=== PATIENT | female | born 1995 | race Two or more races ===

== ENCOUNTER 2021-03-07 00:56 | Inpatient (IN) | payer OTHER ==
[~2021-03-07] VITALS: Ht 157.5 cm; Wt 54.9 kg
[2021-03-07] MEDS ORDERED: PRENATAL TABLE1 EAC1 PO (01:19)
[2021-03-07] MEDS ORDERED: IRON236 MG PO (01:19)
== END 2021-03-09 09:11 | disposition home or self-care (01) | DRG 833 ==
LOC: LDR 00:56
PROVIDERS: ADMIT Obstetrics & Gynecology Maternal & Fetal Medicine; ATTEND Obstetrics & Gynecology Maternal & Fetal Medicine
PROC: 4A1HXFZ Monitoring of Products of Conception, Cardiac Rhythm, External Approach (ICD-10-PCS; principal; 2021-03-07)
PROC: BY4GZZZ Ultrasonography of Third Trimester, Multiple Gestation (ICD-10-PCS; 2021-03-07)
DX: O21.8 Other vomiting complicating pregnancy (principal); O30.043 Twin pregnancy, dichorionic/diamniotic, third trimester; R19.7 Diarrhea, unspecified; Z3A.28 28 weeks gestation of pregnancy; Z20.822 Contact with and (suspected) exposure to COVID-19

== ENCOUNTER 2021-03-10 14:42 | Inpatient (IN) | payer OTHER ==
[~2021-03-10] VITALS: Ht 157.5 cm; Wt 54.9 kg
[~2021-03-10 14:42] MED LIST: IRON236 MG PO; PRENATAL TABLE1 EAC1 PO
[2021-03-14] MEDS ORDERED: NIFE60TA3 PO (12:37)
[2021-03-14] MEDS ORDERED: IMODIUM A-D2 M2 PO (12:38)
== END 2021-03-13 12:12 | disposition home or self-care (01) | DRG 833 ==
LOC: NST 14:42 → LDR 15:39 → OB/GYN 03-11 08:49
PROVIDERS: ADMIT Obstetrics & Gynecology Maternal & Fetal Medicine; ATTEND Obstetrics & Gynecology Maternal & Fetal Medicine
DX: O47.03 False labor before 37 completed weeks of gestation, third trimester (principal); O30.043 Twin pregnancy, dichorionic/diamniotic, third trimester; Z3A.29 29 weeks gestation of pregnancy

== ENCOUNTER 2021-03-14 11:14 | Inpatient (IN) | payer OTHER ==
[~2021-03-14] VITALS: Ht 157.5 cm; Wt 0.9 kg
[2021-03-14] MEDS ORDERED: NIFE60TA3 PO (12:37)
[2021-03-14] MEDS ORDERED: IMODIUM A-D2 M2 PO (12:38)
== END 2021-03-17 15:52 | disposition home or self-care (01) | DRG 786 ==
LOC: SURG-SUITE 11:14 → LDR 11:14 → SURG-SUITE 14:01
PROVIDERS: ADMIT Obstetrics & Gynecology; ATTEND Obstetrics & Gynecology
PROC: 4A1HXFZ Monitoring of Products of Conception, Cardiac Rhythm, External Approach (ICD-10-PCS; 2021-03-14)
PROC: 10D00Z1 Extraction of Products of Conception, Low, Open Approach (ICD-10-PCS; principal; 2021-03-14 11:00)
DX: O42.913 Preterm premature rupture of membranes, unspecified as to length of time between rupture and onset of labor, third trimester (principal); O60.14X2 Preterm labor third trimester with preterm delivery third trimester, fetus 2; O60.14X1 Preterm labor third trimester with preterm delivery third trimester, fetus 1; O69.0XX0 Labor and delivery complicated by prolapse of cord, not applicable or unspecified; O32.9XX0 Maternal care for malpresentation of fetus, unspecified, not applicable or unspecified; O30.043 Twin pregnancy, dichorionic/diamniotic, third trimester; Z37.2 Twins, both liveborn; Z3A.29 29 weeks gestation of pregnancy

== ENCOUNTER 2021-03-22 14:40 | Inpatient (IN) | payer OTHER ==
[~2021-03-22] VITALS: Ht 157.5 cm; Wt 54.4 kg
[~2021-03-22 14:40] MED LIST changes: +IMODIUM A-D2 M2 PO; +NIFE60TA3 PO
[2021-03-22] MEDS ORDERED: IBU600 MG (14:53)
== END 2021-03-31 15:10 | disposition home or self-care (01) | DRG 776 ==
LOC: ER 14:40 → OB/GYN 22:51
PROVIDERS: ADMIT Obstetrics & Gynecology; ATTEND Obstetrics & Gynecology
PROC: 30233N1 Transfusion of Nonautologous Red Blood Cells into Peripheral Vein, Percutaneous Approach (ICD-10-PCS; principal; 2021-03-23)
PROC: BW211ZZ Computerized Tomography (CT Scan) of Abdomen and Pelvis using Low Osmolar Contrast (ICD-10-PCS; 2021-03-24)
PROC: B54DZZZ Ultrasonography of Bilateral Lower Extremity Veins (ICD-10-PCS; 2021-03-24)
DX: O98.83 Other maternal infectious and parasitic diseases complicating the puerperium (principal); A04.72 Enterocolitis due to Clostridium difficile, not specified as recurrent; O99.63 Diseases of the digestive system complicating the puerperium; K90.49 Malabsorption due to intolerance, not elsewhere classified; O90.81 Anemia of the puerperium; D64.9 Anemia, unspecified; D72.829 Elevated white blood cell count, unspecified